=== PATIENT | female | born 1940 | race Caucasian/White ===

== ENCOUNTER 2016-11-28 21:31 | Observation (INO) | payer MEDICARE ==
[~2016-11-28] VITALS: Ht 157.5 cm; Wt 72.0 kg
[~2016-11-28 21:31] MED LIST: ALEN70TA39 PO; ANAS1TAB PO; MECL25 PO; SIMV20TA PO
[2016-11-28 21:35] VITALS: BP 173/70; PULSE 88; RESP 18; TEMP 98.5; O2SAT 99
[2016-11-28] MEDS ORDERED: MULT1TAB84 PO (21:54)
[2016-11-28] MEDS ORDERED: VITA100064 PO (21:54)
[2016-11-28] MEDS ORDERED: LISI10TA3 PO (21:54)
[2016-11-28] MEDS ORDERED: LIPI10TA PO (21:54)
[2016-11-28] MEDS: NITROGLYCERIN 0.4 MG SL 25 TABS/BTL SL SCH ×3 (22:00→22:10)
[2016-11-28] MEDS ORDERED: SODIUM CHLORIDE 0.9% FLUSH 5 ML FLUSH IVF PRN ×2 (22:00→23:00)
[2016-11-28] MEDS ORDERED: ASPIRIN 81 MG CHEW TAB PO ONE (22:00)
--- NOTE | 2016-11-28 22:07 | PD ---
HPI Chief Complaint: Chest Pain Time Seen by Provider: 21:39 Travel History International Travel<30 days: No Contact w/Intl Traveler<30days: No Traveled to known affect area: No History of Present Illness HPI The patient is a 76-year-old female with no known history of heart disease who complains of a dull chest pain located on the lower left sternal border and one small area on and off for the last her 3 days but lasting an hour tonight. She denies any nausea, diaphoresis, shortness of breath or radiation of the pain. She is from [place] and has no local physician here. She has never had a stress test. She denies any palpitations or syncopal or near syncopal spells. She does have a history of hypertension but does not smoke. She does have a history of elevated cholesterol. She denies any history of diabetes. PFSH Past Medical History Arthritis: Yes (osteo) Cancer: Yes (breast) High Cholesterol: Yes Diminished Hearing: No Radiation Therapy: Yes (2006 right breast) Menopausal: Yes Tubal Ligation: Yes Past Surgical History Other Surgery: Yes ("2006,right lumpectomy") Social History Alcohol Use: Yes (occ) Tobacco Use: No Substance Use: No Allergies-Medications (Allergen,Severity, Reaction): Coded Allergies: No Known Allergies (Verified , 11/28/16) Reported Meds & Prescriptions Reported Meds & Active Scripts Active Reported Vitamin D (Cholecalciferol) 1,000 Unit Tab 1,000 Units PO DAILY Lisinopril 10 Mg Tab 10 Mg PO DAILY Multivitamin Adults (Multiple Vitamins W/ Minerals) 1 Tab 1 Tab PO DAILY Lipitor (Atorvastatin Calcium) 10 Mg Tab 10 Mg PO HS Review of Systems Except as stated in HPI: all other systems reviewed are Neg Physical Exam Narrative GENERAL: The patient is alert, oriented 3 and slight apparent distress with her chest discomfort. Her vital signs are normal. SKIN: Warm and dry. No skin rash is seen. HEAD: Atraumatic. Normocephalic. EYES: Pupils equal and round. No scleral icterus. No injection or drainage. ENT: No nasal bleeding or discharge. Mucous membranes pink and moist. NECK: Trachea midline. No JVD. CARDIOVASCULAR: Regular rate and rhythm. No murmur appreciated. I can partially reproduce the patient's pain by pressing on the costochondral junctions to the left of the lower sternum. RESPIRATORY: No accessory muscle use. Clear to auscultation. Breath sounds equal bilaterally. GASTROINTESTINAL: Abdomen soft, non-tender, nondistended. Hepatic and splenic margins not palpable. MUSCULOSKELETAL: No obvious deformities. No clubbing. No cyanosis. No edema. NEUROLOGICAL: Awake and alert. No obvious cranial nerve deficits. Motor grossly within normal limits. Normal speech. PSYCHIATRIC: Appropriate mood and affect; insight and judgment normal. Data Data Last Documented VS Vital Signs Date Time Temp Pulse Resp B/P Pulse Ox O2 Delivery O2 Flow Rate FiO2 11/28/16 21:50 18 100 Nasal Cannula 2 11/28/16 21:35 98.5 88 173/70 Orders Electrocardiogram (11/28/16 21:46) Ckmb (Isoenzyme) Profile (11/28/16 21:46) Complete Blood Count With Diff (11/28/16 21:46) Comprehensive Metabolic Panel (11/28/16 21:46) Magnesium (Mg) (11/28/16 21:46) Prothrombin Time / Inr (Pt) (11/28/16 21:46) Act Partial Throm Time (Ptt) (11/28/16 21:46) Troponin I (11/28/16 21:46) Ecg Monitoring (11/28/16 21:46) Bilateral Bp Monitoring (11/28/16 21:46) Iv Access Insert/Monitor (11/28/16 21:46) Oximetry (11/28/16 21:46) Oxygen Administration (11/28/16 21:46) Aspirin Chew (Aspirin Chew) (11/28/16 22:00) Sodium Chloride 0.9% Flush (Ns Flush) (11/28/16 22:00) Nitroglycerin Sl (Nitrostat Sl) (11/28/16 22:00) Chest, Pa & Lat (11/28/16 21:46) Admit Order (Ed Use Only) (11/28/16 22:47) Labs Laboratory Tests Test 11/28/16 21:50 White Blood Count 6.9 TH/MM3 Red Blood Count 4.28 MIL/MM3 Hemoglobin 13.6 GM/DL Hematocrit 39.3 % Mean Corpuscular Volume 92.1 FL Mean Corpuscular Hemoglobin 31.8 PG Mean Corpuscular Hemoglobin 34.5 % Concent Red Cell Distribution Width 13.4 % Platelet Count 226 TH/MM3 Mean Platelet Volume 7.2 FL Neutrophils (%) (Auto) 53.0 % Lymphocytes (%) (Auto) 36.9 % Monocytes (%) (Auto) 7.7 % Eosinophils (%) (Auto) 1.9 % Basophils (%) (Auto) 0.5 % Neutrophils # (Auto) 3.8 TH/MM3 Lymphocytes # (Auto) 2.5 TH/MM3 Monocytes # (Auto) 0.5 TH/MM3 Eosinophils # (Auto) 0.1 TH/MM3 Basophils # (Auto) 0.0 TH/MM3 CBC Comment DIFF FINAL Differential Comment Prothrombin Time 10.1 SEC Prothromb Time International 0.9 RATIO Ratio Activated Partial 23.6 SEC Thromboplast Time Sodium Level 141 MEQ/L Potassium Level 3.7 MEQ/L Chloride Level 104 MEQ/L Carbon Dioxide Level 27.9 MEQ/L Anion Gap 9 MEQ/L Blood Urea Nitrogen 14 MG/DL Creatinine 0.86 MG/DL Estimat Glomerular Filtration 64 ML/MIN Rate Random Glucose 99 MG/DL Calcium Level 9.0 MG/DL Magnesium Level 2.4 MG/DL Total Bilirubin 0.4 MG/DL Aspartate Amino Transf 16 U/L (AST/SGOT) Alanine Aminotransferase 23 U/L (ALT/SGPT) Alkaline Phosphatase 69 U/L Total Creatine Kinase 54 U/L Troponin I LESS THAN 0.02 NG/ML Total Protein 7.4 GM/DL Albumin 3.9 GM/DL MDM Medical Decision Making Medical Screen Exam Complete: Yes Emergency Medical Condition: Yes Medical Record Reviewed: Yes Interpretation(s) The EKG shows sinus rhythm with rate of [address] junction depression. The complete metabolic profile shows a GFR of 64 but is otherwise normal. The cardiac enzymes are normal. The coagulation profile shows an APTT of 23.6 but is otherwise normal. The CBC is normal. Differential Diagnosis Costochondritis, chest pain etiology undetermined, acute coronary syndrome highly unlikely Narrative Course The patient has chest pain etiology undetermined. She has not had a stress test and we will put her in the chest pain center, she thinks he can do a treadmill. Physician Communication Physician Communication I discussed patient with Dr. Garrett, the patient will be admitted to her. Diagnosis Primary Impression: Chest pain of unknown etiology Bharathi Lieberman MD Nov 28, 2016 22:07
[2016-11-28 22:14] LABS: CHLORIDE 104 MEQ/L (98-107); POTASSIUM 3.7 MEQ/L (3.5-5.1); SODIUM (NA) 141 MEQ/L (136-145)
[2016-11-28 22:18] LABS: ANION GAP 9 MEQ/L (5-15); BICARBONATE 27.9 MEQ/L (21.0-32.0); BLOOD UREA NITROGEN 14 MG/DL (7-18); MAGNESIUM 2.4 MG/DL (1.5-2.5)
[2016-11-28 22:20] LABS: APTT (PATIENT) 23.6 SEC (24.3-30.1); INTERNATIONAL NORMALIZED RATIO 0.9 RATIO; PROTHROMBIN TIME - PATIENT 10.1 SEC (9.8-11.6)
[2016-11-28 22:21] LABS: ALT (GPT) 23 U/L (10-53); AST (GOT) 16 U/L (15-37); GLOMERULAR FILTRATION RATE 64 ML/MIN (>89)
[2016-11-28 22:23] LABS: TOTAL BILIRUBIN ADULT 0.4 MG/DL (0.2-1.0)
[2016-11-28 22:24] LABS: ALKALINE PHOSPHATASE 69 U/L (45-117)
[2016-11-28 22:25] LABS: CREATINE KINASE 54 U/L (26-192)
[2016-11-28 22:29] LABS: AUTOMATED NEUTROPHIL # 3.8 TH/MM3 (1.8-7.7); BASOPHIL % 0.5 % (0.0-2.0); EOSINOPHIL # 0.1 TH/MM3 (0-0.4); EOSINOPHIL % 1.9 % (0.0-4.0); HEMATOCRIT 39.3 % (35.0-46.0); HEMO FLAGS DIFF FINAL; LYMPH % 36.9 % (9.0-44.0); LYMPHOCYTE # 2.5 TH/MM3 (1.0-4.8); MEAN CELL VOLUME 92.1 FL (80.0-100.0); MEAN CORPUSCULAR HEMOGLOBIN 31.8 PG (27.0-34.0); MEAN CORPUSCULAR HGB CONC 34.5 % (32.0-36.0); MONO % 7.7 % (0.0-8.0); PLATELET COUNT 226 TH/MM3 (150-450); RED BLOOD COUNT 4.28 MIL/MM3 (4.00-5.30); RED CELL DISTRIBUTION WIDTH 13.4 % (11.6-17.2); WHITE BLOOD COUNT 6.9 TH/MM3 (4.0-11.0)
[2016-11-28 22:45] VITALS: BP 172/70; PULSE 74; RESP 16; O2SAT 99
--- NOTE | 2016-11-28 23:00 | RADHPO ---
EXAM DATE/TIME: 11/28/2016 21:52 [facility] COMPARISON: No previous studies available for comparison. INDICATIONS : Chest pain for three days. MEDICAL HISTORY : None. SURGICAL HISTORY : None. ENCOUNTER: Initial ACUITY: 3 days PAIN SCORE: 3/10 LOCATION: Bilateral chest FINDINGS: PA and lateral views of the chest demonstrate the lungs to be symmetrically aerated without evidence of mass, infiltrate or effusion. The cardiomediastinal contours are unremarkable. Osseous structure s are intact. CONCLUSION: No acute disease. Pepe Baltazar MD on November 28, 2016 at 22:58 Board Certified Radiologist. This report was verified electronically.
[2016-11-29 01:09] VITALS: BP 151/80; PULSE 80; RESP 20; TEMP 97.1; O2SAT 100
[2016-11-29 01:10] LABS: CREATINE KINASE 49 U/L (26-192)
[2016-11-29 01:30] VITALS: PULSE 73
[2016-11-29 01:32] VITALS: O2SAT 96
[2016-11-29 04:00] VITALS: BP 117/72; PULSE 70; RESP 18; TEMP 96.8; O2SAT 98
[2016-11-29 05:51] LABS: CREATINE KINASE 43 U/L (26-192)
--- NOTE | 2016-11-29 07:09 | HHI.HP ---
[facility] Non-Staff Admission Diagnosis chest pain of unknown etiology Diagnoses: (1) Chest pain of unknown etiology Diagnosis: Principal (2) Hypertension Diagnosis: Secondary (3) Hyperlipidemia Diagnosis: Secondary Chief Complaint: Chest pain Travel History International Travel<30 Days: No Contact w/Intl Traveler <30 Da: No Traveled to Known Affected Are: No History of Present Illness 76-year-old female with known history of hypertension, hyperlipidemia , history of breast cancer who presented to hospital because of chest discomfort. Patient states that yesterday she started developing burning type sensation sporadically in her chest lasting for a couple seconds at a time. Then at approximate 9 PM last night she developed a heaviness in the center part of her chest radiating into her back lasting for 1-2 hours. Patient did take a baby aspirin at that time and because of her family history she came to the hospital for evaluation. Patient states that the pain did resolve approximate one hour after she came to the emergency department without any additional medications. Denied any nausea, vomiting, shortness of breath, dyspnea, diaphoresis. Patient does live in [place] and comes on a [place] progress 6 months out of the year. Her primary medical doctor is in [place]. She has not had any formal cardiac workup. Patient was evaluated in urgent department recommended chest pain center observation. Review of Systems Constitutional: DENIES: Diaphoretic episodes, Fatigue, Fever, Weight gain, Weight loss, Chills, Dizziness, Change in appetite, Night Sweats Eyes: DENIES: Blurred vision, Diplopia, Eye inflammation, Eye pain, Vision loss , Double Vision Ears, nose, mouth, throat: DENIES: Vertigo, Nasal discharge, Throat pain, Ear Pain, Running Nose, Sinus Pain Respiratory: DENIES: Apneas, Cough, Snoring, Wheezing, Hemoptysis, Sputum production, Shortness of breath Cardiovascular: COMPLAINS OF: Chest pain, DENIES: Palpitations, Syncope, Dyspnea on Exertion, Lower Extremity Edema, Orthopnea Gastrointestinal: DENIES: Abdominal pain, Black stools, Bloody stools, Constipation, Diarrhea, Nausea, Vomiting, Difficulty Swallowing, Anorexia Neurologic: DENIES: Abnormal gait, Headache, Localized weakness, Paresthesias, Seizures, Speech Problems, Tremor, Poor Balance Psychiatric: DENIES: Anxiety, Confusion, Mood changes, Depression, Hallucinations, Agitation, Suicidal Ideation, Homicidal Ideation Past Family Social History Past Medical History Hypertension Hyperlipidemia History of breast cancer Past Surgical History Right breast lumpectomy Bilateral bunion surgery Tubal ligation Reported Medications Reported Meds & Active Scripts Active Reported Vitamin D (Cholecalciferol) 1,000 Unit Tab 1,000 Units PO DAILY Lisinopril 10 Mg Tab 10 Mg PO DAILY Multivitamin Adults (Multiple Vitamins W/ Minerals) 1 Tab 1 Tab PO DAILY Lipitor (Atorvastatin Calcium) 10 Mg Tab 10 Mg PO HS Allergies: Coded Allergies: No Known Allergies (Verified , 11/28/16) Family History Reviewed is significant for both mother and father with heart attacks Social History Patient does drink alcohol rarely. Denies any tobacco or illicit drug use Physical Exam Vital Signs Vital Signs Date Time Temp Pulse Resp B/P Pulse Ox O2 Delivery O2 Flow Rate FiO2 11/29/16 04:00 96.8 70 18 117/72 98 11/29/16 01:32 96 21 11/29/16 01:30 73 11/29/16 01:09 97.1 80 20 151/80 100 11/28/16 22:45 74 16 172/70 99 Nasal Cannula 2 11/28/16 21:50 18 100 Nasal Cannula 2 11/28/16 21:50 100 Nasal Cannula 2 11/28/16 21:35 98.5 88 18 173/70 99 Physical Exam GENERAL: Well-developed, well-nourished, in no acute distress. alert and orientated HEENT: Head is normocephalic without any lesions or masses noted. Facial features are symmetric. Eyes: Pupils equal round reactive to light. Extraocular muscles are intact. Conjunctivae were clear. Oropharyngeal: Pharynx without any erythema edema. Tongue is midline without deviation. Buccal mucosa is moist without any masses or lesions NECK: Supple without any masses. Trachea midline no deviation. No JVD, no bruits are appreciated CARDIAC: Regular rhythm, regular rate. S1/S2 are heard. No murmurs gallops or rubs. Mild palpable tenderness noted on the right sternal border LUNGS: Clear to auscultation bilaterally. No wheeze, rhonchi or rales. No use of accessory muscles on inspiration or expiration. ABDOMEN: Soft, nontender. Nondistended. Bowel sounds heard in all 4 quadrants. No organomegaly or masses. Negative rebound, negative guarding EXTREMITIES: No edema, pulses are equal bilaterally. No cyanosis or clubbing NEUROLOGY: Mood and affect appear appropriate. Cranial nerves II through XII grossly intact. Muscle strength 5/5 in upper and lower extremities bilaterally. Deep tendon reflexes are 2+ in upper and lower extremities bilaterally. Laboratory Laboratory Tests Test 11/28/16 11/29/16 11/29/16 21:50 00:48 04:16 White Blood Count 6.9 Red Blood Count 4.28 Hemoglobin 13.6 Hematocrit 39.3 Mean Corpuscular Volume 92.1 Mean Corpuscular Hemoglobin 31.8 Mean Corpuscular Hemoglobin 34.5 Concent Red Cell Distribution Width 13.4 Platelet Count 226 Mean Platelet Volume 7.2 Neutrophils (%) (Auto) 53.0 Lymphocytes (%) (Auto) 36.9 Monocytes (%) (Auto) 7.7 Eosinophils (%) (Auto) 1.9 Basophils (%) (Auto) 0.5 Neutrophils # (Auto) 3.8 Lymphocytes # (Auto) 2.5 Monocytes # (Auto) 0.5 Eosinophils # (Auto) 0.1 Basophils # (Auto) 0.0 CBC Comment DIFF FINAL Differential Comment Prothrombin Time 10.1 Prothromb Time International 0.9 Ratio Activated Partial 23.6 Thromboplast Time Sodium Level 141 Potassium Level 3.7 Chloride Level 104 Carbon Dioxide Level 27.9 Anion Gap 9 Blood Urea Nitrogen 14 Creatinine 0.86 Estimat Glomerular Filtration 64 Rate Random Glucose 99 Calcium Level 9.0 Magnesium Level 2.4 Total Bilirubin 0.4 Aspartate Amino Transf 16 (AST/SGOT) Alanine Aminotransferase 23 (ALT/SGPT) Alkaline Phosphatase 69 Total Creatine Kinase 54 49 43 Troponin I LESS THAN 0.02 LESS THAN 0.02 LESS THAN 0.02 Total Protein 7.4 Albumin 3.9 Result Diagram: 11/28/16214911/28/162149 Imaging Last Impressions Chest X-Ray 11/28/162145 Signed Impressions: Service Date/Time: Monday, November 28, 2016 21:52 - CONCLUSION: No acute disease. Pepe Baltazar MD Assessment and Plan Assessment and Plan Chest pain, atypical Patient with increased risk factors to include age, hypertension, hypokalemia, family history of heart disease Patient has been ruled out for acute coronary event with serial cardiac enzymes remain negative. Serial EKGs were performed and reviewed by myself shows sinus rhythm without any changes Lipase level was normal Exercise stress test was performed which did not indicate any underlying ischemia Continue aspirin Hypertension, mildly elevated on presentation Home medications have been continued Hyperlipidemia Continue statin DVT prevention Low risk, early ambulation Written by Maxim Lieberman PA-C, acting as scribe for Dr. Corbin on 11/29/16 at 1010. The documentation accurately reflects the work and decisions performed face-to- face by Dr. Corbin on 12/18/16 at 1010. Discharge disposition Discharge home in stable condition Activity: Ad cyndy. Diet: Healthy heart diet Medications per medication reconciliation Follow-up primary medical doctor in one week Discussed Condition With The exam, history, and the medical decision-making described in the above note were completed with my assistance as the dictating practitioner. I attest that I had a [id number] encounter with the patient on the same day, and personally performed all of the history, exam, or medical decision making. I reviewed and agree with the plan. May be gastrointestinal related chest pain. patient will follow up with primary doctor in [place]. Discussed with patient and spouse Problem Qualifiers (1) Hypertension: Qualified Code: I15.9 - Secondary hypertension (2) Hyperlipidemia: Qualified Code: E78.5 - Hyperlipidemia, unspecified hyperlipidemia type Maxim Lieberman Nov 29, 2016 07:09 Ling Corbin MD Nov 29, 2016 10:38
[2016-11-29 08:00] VITALS: BP 143/77; PULSE 70; PULSE 73; RESP 20; TEMP 97.1; O2SAT 98
[2016-11-29 08:54] VITALS: O2SAT 98
[2016-11-29] MEDS ORDERED: LISINOPRIL 10 MG TAB PO SCH (09:00)
[2016-11-29] MEDS ORDERED: SODIUM CHLORIDE 0.9% FLUSH 5 ML FLUSH IVF SCH (09:00)
--- NOTE | 2016-11-29 09:28 | HHI.DCPOC ---
Discharge Care Plan Diagnosis: (1) Chest pain of unknown etiology Your Health Problems Are: Chest Pain Goals to Promote Your Health * To prevent worsening of your condition and complications * To maintain your health at the optimal level Directions to Meet Your Goals Take your medications as prescribed Follow your dietary instruction Follow activity as directed Keep your appointments as scheduled Take your immunizations and boosters as scheduled If your symptoms worsen call your PCP, if no PCP go to Urgent Care Center or Emergency Room Smoking is Dangerous to Your Health. Avoid second hand smoke Call the 24-hour hour crisis hotline for domestic abuse at Maxim Lieberman Nov 29, 2016 09:28
--- NOTE | 2016-11-29 09:50 | EKG ---
Date Performed: 11/29/2016 Time Performed: 04:16:20 PTAGE: 76 years EKG: Sinus rhythm Normal ECG PREVIOUS TRACING : 11/29/2016 01.34 DOCTOR: Michael Pal Interpretating Date/Time 11/29/2016 09:48:58
--- NOTE | 2016-11-29 10:03 | EKG ---
Date Performed: 11/29/2016 Time Performed: 01:34:40 PTAGE: 76 years EKG: Sinus rhythm Normal ECG PREVIOUS TRACING : 11/28/2016 21.43 DOCTOR: Michael Pal Interpretating Date/Time 11/29/2016 10:01:44
--- NOTE | 2016-11-29 16:15 | EKG ---
Date Performed: 11/28/2016 Time Performed: 21:43:20 PTAGE: 76 years EKG: Sinus rhythm ST junctional depression is nonspecific Borderline ECG PREVIOUS TRACING : 07/08/2009 12.02 Since previous tracing, no significant change noted DOCTOR: Lei Livingston Interpretating Date/Time 11/29/2016 16:13:43
--- NOTE | 2016-11-29 16:17 | TR ---
Date Performed: 11/29/2016 Time Performed: 08:55:18 DOCTOR: Lei Livingston DRUG LIST: CLINICAL HISTORY: CHEST PAIN REASON FOR TEST: Chest pain WITH ABNORMAL EKG REASON FOR ENDING: Completed Protocol OBSERVATION: Chest Pain: None Arrhythmia: None CONCLUSION: Lianatent tolerated FRANKIE protocol with Total Exercise Time=6:00 Maximum XJ=452 % Max HR Ekbzsaut=900.0% Maximum MA=479/80, Testing stopped secondary to goals acheived, Patient reached ta rget HR. During peak exercise, patient was asymptomatic, no significant ST depression, quick upslopin g St segments. HR and BP appropriate response to exercise. Recovery stage, patient was asymptomatic, HR and BP returned to baseline COMMENTS: Patient exercised using the Frankie protocol. No electrocardiographic changes were seen to suggest ischemia. Hemodynamic response to exercise was normal. No significant arrhythmia was prese nt.
[2016-11-29] MEDS ORDERED: ATORVASTATIN 10 MG TAB PO SCH (21:00)
== END 2016-11-29 10:30 | disposition home or self-care (01) ==
LOC: PHED 21:31 → PHEDA 22:48 → PH3A 11-29 00:51
PROVIDERS: ADMIT Hospitalist; ATTEND Hospitalist
DX: R07.9 Chest pain, unspecified (principal); I10 Essential (primary) hypertension; E78.00 Pure hypercholesterolemia, unspecified; Z79.899 Other long term (current) drug therapy; E78.5 Hyperlipidemia, unspecified; Z85.3 Personal history of malignant neoplasm of breast; E87.6 Hypokalemia; R94.31 Abnormal electrocardiogram [ECG] [EKG]
CPT/HCPCS: 71020; 80053; 82550; 83690; 83735; 84484; 85025; 85610; 85730; 93005; 93017; 99285; G0378